=== PATIENT | female | born 1955 | race Hispanic/Latino ===

== ENCOUNTER → 2024-11-04 | Outpatient (CLI) | payer MEDICARE | END | disposition home or self-care (01) | LOC: EDUNIT# 11-02 10:40 → RAH 13:35 | PROVIDERS: ATTEND Family Medicine | DX: Z12.31 Encounter for screening mammogram for malignant neoplasm of breast (principal) | CPT/HCPCS: 77067 ==

== ENCOUNTER → 2024-11-30 | Outpatient (CLI) | payer MEDICARE ==
[2024-11-30 08:31] LABS: BASOPHILS # (AUTO) 0.06 K/uL (0.00-0.20); BASOPHILS % (AUTO) 0.7 % (0.0-5.0); EOSINOPHILS % (AUTO) 3.6 % (0.0-8.0); HEMATOCRIT 43.4 % (36-48); IMMATURE GRANULOCYTE ABSOLUTE 0.03 K/uL (0-1); LYMPHOCYTES # (AUTO) 2.5 K/uL (1.0-4.8); LYMPHOCYTES % (AUTO) 29.9 % (21.0-51.0); MEAN CORPUSCULAR HEMOGLOBIN 33.2 pg (27.0-33.0); MEAN CORPUSCULAR HGB CONC 34.3 g/dL (32.0-36.0); MEAN CORPUSCULAR VOLUME 96.7 fL (79-99); MONOCYTES # (AUTO) 0.7 K/uL (0.1-1.0); MONOCYTES % (AUTO) 8.2 % (3.0-13.0); NEUTROPHILS # (AUTO) 4.8 K/uL (1.8-7.7); NEUTROPHILS % (AUTO) 57.2 % (40.0-77.0); PLATELET COUNT (AUTO) 232 K/uL (130-400); RED BLOOD CELL COUNT(AUTO) 4.49 MIL/uL (4.00-5.50); RED CELL DISTRIBUTION WIDTH 12.6 % (11.0-15.5); WHITE BLOOD COUNT (AUTO) 8.4 K/uL (4.8-10.8)
[2024-11-30 08:42] LABS: ALBUMIN 3.8 g/dL (3.5-5.0); BILIRUBIN,TOTAL 0.4 mg/dL (0.2-1.0); CREATININE 0.7 mg/dL (0.5-1.0); POTASSIUM 4.7 mmol/L (3.5-5.1); TOTAL PROTEIN, SERUM 7.1 g/dL (6.0-8.3)
== END ==
LOC: LAB 11-01 09:16
PROVIDERS: ATTEND Internal Medicine Cardiovascular Disease
DX: I10 Essential (primary) hypertension (principal); I25.10 Atherosclerotic heart disease of native coronary artery without angina pectoris; E78.5 Hyperlipidemia, unspecified; Z00.00 Encounter for general adult medical examination without abnormal findings
CPT/HCPCS: 36415; 80053; 80061; 85025

== ENCOUNTER 2025-03-29 13:33 | Emergency (ER) | payer MEDICARE ==
[~2025-03-29] VITALS: Ht 162.6 cm; Wt 78.0 kg
--- NOTE | 2025-03-29 14:15 | EKG ---
[facility] Test Date: 2025-03-29 Test Time: 14:03:23 Pat Name: KATIE SUNSHINE Department: ED Room: Gender: F [place] Operator: [id number] : 1955 Requested By: NICOLA ZHANG Order Number: [id number] Reading MD: Aminah Arias Measurements Intervals [place] Rate: 69 P: 40 [place]: 170 QRS: -30 QRSD: 99 T: 51 QT: 391 QTc: 418 Interpretive Statements Sinus rhythm Inferior infarct, old No previous ECG available for comparison Electronically Signed On 03-31-2025 08:37:06 CDT by Aminah Arias Please click the below link to view image of tracing.
[2025-03-29 14:24] LABS: IMMATURE GRANULOCYTE ABSOLUTE 0.02 K/uL (0-1); NUCLEATED RED BLOOD CELLS 0.0 % (0.0-0.19); PLATELET COUNT (AUTO) 221 K/uL (130-400); RED BLOOD CELL COUNT(AUTO) 4.53 MIL/uL (4.00-5.50); RED CELL DISTRIBUTION WIDTH 12.3 % (11.0-15.5); WHITE BLOOD COUNT (AUTO) 7.4 K/uL (4.8-10.8)
--- NOTE | 2025-03-29 14:30 | NUR ---
PATIENT CARE ASSUMED AT THIS TIME.
[2025-03-29 14:32] LABS: CREATININE 0.5 mg/dL (0.5-1.0); GLOMERULAR FILTR. RATE CALC 101.0 mL/min (>90); GLUCOSE,RANDOM 100.0 mg/dL (70-105); SODIUM SERUM 136.0 mmol/L (136-145); UREA NITROGEN, BLOOD 12.0 mg/dL (7-18)
[2025-03-29] MEDS: LACTATED RINGERS 1000ML IV STA (14:59)
--- NOTE | 2025-03-29 14:59 | NUR ---
PATIENT REFUSED IV PLACEMENT, 1L NS, AND ONDANSETRON. PATIENT STATES HER NAUSEA HAS RESOLVED SINCE THIS MORNING AND DOES NOT WANT THE MEDICATION OR FLUIDS. ER CARCASS SPLITTER INFORMED.
[2025-03-29] MEDS: BENZONATATE 100 MG CAPSULE PO STA (15:03)
[2025-03-29 15:21] LABS: SARS-CoV-2, RNA, NAAT NEGATIVE SARS CoV-2 (NEGATIVE)
[2025-03-29 15:25] LABS: INFLUENZA TYPE A Negative For Type A (NEGATIVE); INFLUENZA TYPE B Negative For Type B (NEGATIVE)
--- NOTE | 2025-03-29 15:26 | HMCIMG ---
EXAM: CR Chest, 1 View. CLINICAL HISTORY: cough COMPARISON: None provided. FINDINGS: LUNGS: The lungs show no infiltrate or other acute finding. PLEURAL SPACES: No evidence of pleural effusion or pneumothorax. MEDIASTINUM: The cardiomediastinal silhouette is within normal limits. BONES: No acute osseous abnormality. IMPRESSION: No acute cardiopulmonary pathology is evident. /[place]
[2025-03-29] MEDS ORDERED: AZIT500T4 PO (15:43)
[2025-03-29] MEDS ORDERED: BENZ200C53 PO (15:45)
--- NOTE | 2025-03-29 15:46 | ERN ---
ED Note History of Present Illness Stated Complaint: SORE THROAT Chief Complaint: Sore Throat Time Seen by MD: 13:37 Time Seen by Midlevel: 13:40 Dictation: 69-year-old female with a history of diabetes coming in with complaints of cough, sore throat generalized body weakness right ear pain since Thursday. Denies any chest pain, chest discomfort, shortness a breath, fevers, nausea vomiting or diarrhea. Denies any dysuria or hematuria. Allergies: Coded Allergies: Penicillins (Unverified Allergy, Unknown, 03/29/25) Home Meds Active Scripts Benzonatate (Benzonatate) 200 Mg Capsule, 1 CAP PO TIDP PRN for cough for 7 Days, #21 CAP 0 Refills Prov:NICOLA ZHANG [employer]ATION [employer]ENT 03/29/25 Azithromycin (Azithromycin) 500 Mg Tablet, 1 TAB PO DAILY for 5 Days, #5 TAB 0 Refills Prov:NICOLA ZHANG H[employer] RES[employer]ATION [employer]ENT 03/29/25 Past Medical History Past Medical History: Diabetes-Type II Surgical History: BTL Surgical History Other: cardiac stents Review of System Dictation Constitutional: Negative for fever,chills, and weight loss Eyes: Negative for injury, pain,redness, and discharge ENT: Negative for injury,pain or swelling Cardiovascular: Negative for chest pain, palpitations, and edema Respiratory: Complaining of cough, no shortness a breath no wheezing Abdomen/GI: Negative for abdominal pain, nausea, vomiting, diarrhea, and constipation Back: Negative for injury and pain : Negative for injury, bleeding and discharge MS/Extremity: Negative for injury and deformity Skin: Negative for rash, and discoloration Neuro: Negative for headache, weakness, numbness, tingling, and seizure Psych: Negative for suicide ideation, homicidal ideation, and hallucinations Review of Systems: was completed Initial Vital Sign VS Vital Signs Date Time Temp Pulse Resp B/P (MAP) Pulse Ox O2 Delivery O2 Flow Rate FiO2 03/29/25 13:34 97.7 80 16 147/69 98 Room Air 03/29/25 14:30 0 21 Physical Exam Dictation General: awake, alert, NAD Head/Face: Normocephalic, atraumatic Eyes: PERRL, EOMI, vision at baseline ENT: oral cavity clear, TMs clear, no signs of infection Neck: Trachea midline, supple, no nuchal rigidity Cardiovascular: RRR, normal S1/S2, No MRGs, no JVD Respiratory: CTAB, no respiratory distress, No rales or wheezes Abdomen: Soft, non-tender, non-distended, normal bowel sounds, no guarding or rebound. Skin: Warm, dry, normal turgor, no rash MS/Extremity: Pulses equal, no cyanosis, neurovascular intact, FROM Neuro: COAx4, GCS 15, strength 5/5, CN 2-12 intact, normal cerebellar exam, normal gait, Psych: Normal behavior, mood, and affect normal Results (Laboratory/Radiology) Laboratory/Radiology Laboratory Tests Test 03/29/25 14:06 03/29/25 14:46 White Blood Count 7.4 K/uL (4.8-10.8) Red Blood Count 4.53 MIL/uL (4.00-5.50) Hemoglobin 14.8 g/dL (12.0-16.0) Hematocrit 44.0 % (36-48) Mean Corpuscular Volume 97.1 fL (79-99) Mean Corpuscular Hemoglobin 32.7 pg (27.0-33.0) Mean Corpuscular Hemoglobin Concent 33.6 g/dL (32.0-36.0) Red Cell Distribution Width 12.3 % (11.0-15.5) Platelet Count 221 K/uL (130-400) Mean Platelet Volume 10.0 fL (7.5-10.5) Immature Granulocyte % (Auto) 0.3 % (0-1) Neutrophils (%) (Auto) 50.2 % (40.0-77.0) Lymphocytes (%) (Auto) 32.7 % (21.0-51.0) Monocytes (%) (Auto) 12.1 % (3.0-13.0) Eosinophils (%) (Auto) 4.2 % (0.0-8.0) Basophils (%) (Auto) 0.5 % (0.0-5.0) Neutrophils # (Auto) 3.7 K/uL (1.8-7.7) Lymphocytes # (Auto) 2.4 K/uL (1.0-4.8) Monocytes # (Auto) 0.9 K/uL (0.1-1.0) Eosinophils # (Auto) 0.31 K/uL (0.00-0.70) Basophils # (Auto) 0.04 K/uL (0.00-0.20) Absolute Immature Granulocyte (auto 0.02 K/uL (0-1) Nucleated Red Blood Cells 0.0 % (0.0-0.19) Sodium Level 136 mmol/L (136-145) Potassium Level 4.1 mmol/L (3.5-5.1) Chloride Level 100 mmol/L (101-111) L Carbon Dioxide Level 29 mmol/L (21-32) Blood Urea Nitrogen 12 mg/dL (7-18) Creatinine 0.5 mg/dL (0.5-1.0) Glomerular Filtration Rate Calc 101 mL/min (>90) Random Glucose 100 mg/dL (70-105) Total Calcium 9.0 mg/dL (8.5-10.1) Troponin I High Sensitivity 15 ng/L (4-50) Influenza Type A Antigen Negative For Type A Influenza Type B Antigen Negative For Type B SARS-CoV-2, RNA, NAAT NEGATIVE SARS CoV-2 Labs Reviewed?: Yes X-RAY Comment: [place] [address] IMAGING REPORT Signed PATIENT: KATIE SUNSHINE MR#: [id number] : 1955 SEX: F AGE: 69 LOCATION: [facility] ORDER [id number] STATUS: [facility] REPORT#: [id number] SERVICE 135 REASON: cough ORDERING PHYSICIAN: NICOLA ZHANG NP PROCEDURE: CXR1VW - CHEST 1VW EXAM: CR Chest, 1 View. CLINICAL HISTORY: cough COMPARISON: None provided. FINDINGS: LUNGS: The lungs show no infiltrate or other acute finding. PLEURAL SPACES: No evidence of pleural effusion or pneumothorax. MEDIASTINUM: The cardiomediastinal silhouette is within normal limits. BONES: No acute osseous abnormality. IMPRESSION: No acute cardiopulmonary pathology is evident. /Organ DICTATED BY: GENE TSAI MD DATE: 03/29/251624 ELECTRONICALLY SIGNED BY: GENE TSAI MD DATE: 09/24/25 1625 ED Course ED Course Orders Procedure Category Date Status Time Covid Rna Naat LAB 03/29/25 Complete 13:50 Influenza Type A & B, LAB 03/29/25 Complete Rapid 13:50 Chest 1vw RAD 03/29/25 Resulted 13:50 Cbc With Differential LAB 03/29/25 Complete 13:50 Basic Metabolic Panel LAB 03/29/25 Complete 13:50 12 Lead Ekg Tracing- EKG 03/29/25 Complete Technical 13:50 Troponin I High LAB 03/29/25 Complete Sensitivity 13:50 Benzonatate 100 Mg PHA 03/29/25 Complete Capsule (Tessalon 100 14:34 Lactated Ringers PHA 03/29/25 Complete 1000ml (Lactated 14:34 Ondansetron 4mg Inj PHA 03/29/25 Complete (Zofran 4mg Inj) 15:00 Current Medications Medications (Trade) Dose Ordered Sig/Matilda Route PRN Reason Start Time Stop Time Status Last Admin Dose Admin Benzonatate (Tessalon 100mg Caps) 200 mg ONCE STAT PO 03/29/25 14:34 03/29/25 14:37 DC 03/29/25 15:03 Lactated Ringer's (Lactated Ringers 1000ml) 1,000 ml ONCE STAT IV 03/29/25 14:34 03/29/25 14:38 DC Ondansetron HCl (zoFRAN 4MG INJ) 4 mg ONCE ONCE IVP 03/29/25 15:00 03/29/25 15:01 DC Vital Signs Date Time Temp Pulse Resp B/P (MAP) Pulse Ox O2 Delivery O2 Flow Rate FiO2 03/29/25 15:49 98.4 72 20 120/56 98 Room Air* 0 21 03/29/25 14:30 98.4 76 20 119/55 96 Room Air* 0 21 03/29/25 13:34 97.7 80 16 147/69 98 Room Air Medical Decision Making MDM MDM: 69-year-old female with a history of diabetes coming in with complaints of cough, sore throat generalized body weakness right ear pain since Thursday. Denies any chest pain, chest discomfort, shortness a breath, fevers, nausea vomiting or diarrhea. Denies any dysuria or hematuria. Blood work unremarkable. Swabs negative for COVID, flu, strep. Chest x-ray did not feels no acute finding. Right otitis media. We will likely patient has acute bronchitis in his causing her sore throat at this time. We will discharge patient with cough medication antibiotics for her ear infection have patient follow up outpatient with PCP. This with the discussed with the patient. Okay to follow up outpatient, educated on when to return to the ER. Patient verbalized understanding, answered all questions. Differential diagnosis: Strep throat, COVID, flu, bronchitis, pneumonia Rationale: Tests considered and ordered secondary to shared decision making include: Previous outside records reviewed: Old ER visits. Risk of complication and/or morbidity or mortality of patient management: None Medications-Per medication reconciliation Need for hospitalization: Patient does not meet criteria for hospitalization. Need for emergency major/minor surgery: No There are no social concerns with this patient. Prescription drug management Prescriptions will include symptomatic care Patient's prior external medical records from other ER visits were reviewed by me as indicated. Prior testing and results from previous visits were reviewed. Prior tests were taken into account with medical decision making and resource utilization, independent historian/historians were used to obtain complete medical history. I independently interpreted the test that were performed, results were reviewed by me and considered findings on radiology if ordered. Medical management and examination interpretation discussions were had by me with other qualified healthcare professionals as indicated for the patient's care. DX & DISP Disposition: Discharge Departure Impression: Primary Impression: Right otitis media Additional Impression: Acute bronchitis Condition: Stable Scripts Benzonatate (Benzonatate) 200 Mg Capsule 1 CAP PO TIDP PRN for cough for 7 Days, #21 CAP 0 Refills Prov: NICOLA ZHANG NP 03/29/25 Azithromycin (Azithromycin) 500 Mg Tablet 1 TAB PO DAILY for 5 Days, #5 TAB 0 Refills Prov: NICOLA ZHANG H[employer]EL RESERVATION AGENT 03/29/25 Additional Instructions: Doctor print to the hospital if you have any worsening symptoms despite taking your medication. Otherwise Follow up with your primary physician in 1-2 days. Referrals: SHAUNNA MO DO (PCP) Time of Disposition: 15:46 I have reviewed the case, and I agree with, Diagnosis and Plan NICOLA ZHANG NP Mar 29, 2025 15:46 MARYCARMEN MARSHALL DO Mar 29, 2025 17:53
[2025-03-29 15:49] VITALS: BP 120/56; PULSE 72; RESP 20; TEMP 98.4; O2SAT 98
== END 2025-03-29 15:57 | disposition home or self-care (01) ==
LOC: EDH 13:33
DX: H66.91 Otitis media, unspecified, right ear (principal); J20.9 Acute bronchitis, unspecified; E11.9 Type 2 diabetes mellitus without complications; Z88.0 Allergy status to penicillin; Z95.5 Presence of coronary angioplasty implant and graft; Z98.51 Tubal ligation status; Z20.822 Contact with and (suspected) exposure to COVID-19
CPT/HCPCS: 36415; 71045; 80048; 84484; 85025; 87635; 87804; 93005; 99285